=== PATIENT | male | born 1985 | race Caucasian/White ===

== ENCOUNTER 2017-01-21 16:43 | Emergency (ER) | payer OTHER ==
[2017-01-21] MEDS ORDERED: LORAZEPAM INJ 2 MG/1 ML VIAL IM ONE (17:23)
[2017-01-21] MEDS ORDERED: HALOPERIDOL LACTATE INJ 5 MG/1 ML VIAL IM ONE (17:26)
[2017-01-21 18:14] LABS: ABSOLUTE EOSINOPHILS # (AUTO) 0.3 10^3/uL (0.0-0.6); ABSOLUTE LYMPHOCYTES (AUTO) 1.8 10^3/uL (0.5-4.7); ABSOLUTE MONOCYTES (AUTO) 0.5 10^3/uL (0.1-1.4); ABSOLUTE NEUT (AUTO) 4.3 10^3/uL (1.7-8.2); BASOPHILS % (AUTO) 0.6 % (0-2); EOSINOPHILS % (AUTO) 4.3 % (0-6); HEMATOCRIT 39.3 % (37.9-51.0); HEMOGLOBIN 13.6 g/dL (13.5-17.0); HGB HCT DIFFERENCE 1.5; LYMPHOCYTES % (AUTO) 26.1 % (13-45); MEAN CORPUSCULAR HEMOGLOBIN 32.8 pg (27.0-33.4); MEAN CORPUSCULAR HGB CONC 34.7 g/dL (32.0-36.0); MEAN CORPUSCULAR VOLUME 95 fl (80-97); MONOCYTES % (AUTO) 7.4 % (3-13); RED BLOOD COUNT 4.16 10^6/uL (4.35-5.55); SEGMENTED NEUTROPHILS % (AUTO) 61.6 % (42-78)
[2017-01-21 18:17] LABS: PROTHROMBIN TIME 14.4 SEC (11.4-15.4)
[2017-01-21 18:18] LABS: PARTIAL THROMBOPLASTIN TIME 32.9 SEC (23.5-35.8)
[2017-01-21 18:36] LABS: ALANINE AMINOTRANSFERASE 64 U/L (21-72); ALBUMIN 4.4 g/dL (3.5-5.0); ALKALINE PHOSPHATASE 109 U/L (38-126); ANION GAP 13 (5-19); ASPARTATE AMINO TRANSFERASE 43 U/L (17-59); BILIRUBIN,DIRECT 0.5 mg/dL (0.0-0.4); BILIRUBIN,TOTAL 1.1 mg/dL (0.2-1.3); BLOOD UREA NITROGEN 7 mg/dL (7-20); CALCIUM 9.5 mg/dL (8.4-10.2); CARBON DIOXIDE 23 mmol/L (22-30); CHLORIDE 108 mmol/L (98-107); CREATINE KINASE 461 U/L (55-170); GLUCOSE 84 mg/dL (75-110); POTASSIUM 3.5 mmol/L (3.6-5.0); SODIUM 143.7 mmol/L (137-145)
[2017-01-21 18:37] LABS: ALCOHOL < 10 mg/dL (NONE DETECTED)
[2017-01-21 18:47] LABS: CREATINE KINASE MB 0.77 ng/mL (<4.55)
[2017-01-21 18:50] LABS: TROPONIN I < 0.012 ng/mL
[2017-01-21] MEDS ORDERED: RINGERS SOLUTION,LACTATED 1,000 ML IV ONE (20:20)
--- NOTE | 2017-01-21 20:27 | ER Document Report ---
ED General - General Mode of Arrival: Ambulatory Information source: Patient, Relative - Maria Antonia and patient's best friend both presented here, Friend TRAVEL OUTSIDE OF THE [place] IN LAST 30 DAYS: No - HPI Patient complains to provider of: Right leg pain Onset: Other - a few Days ago <MAYELA GAMING - Last Filed: 01/22/17 00:06> <ERIC SOLIMAN - Last Filed: 01/22/17 15:25> - General Chief Complaint: Leg Pain Stated Complaint: LEG PAIN Time Seen by Provider: 01/21/17 17:23 - HPI Notes: This patient is a 31-year-old male. The majority of the history was obtained by question with his fiance as well as his best friend. Patient is a who got out of the approximately 4 years ago. He does have a history of PTSD however he is not treated and does not see a psychologist or psychiatrist for this. Patient does not have any medical problems besides chronic pain secondary to his days. Patient was on clindamycin and Motrin for right lower leg extremity that began a few days ago. Patient had filled his prescriptions January 19. As per his friend and fianc they state he has not slept in at least 8 days. They state that he does drink a few beers daily and he did have some this morning. This morning he started to have visual hallucinations where he saw wires that were not the year, as well as spiders in the garage. While he was in the emergency department awaiting a room he commented that the snake was wrapped around his leg. He did indeed have a belt that he had wrapped around his leg. At that point the nurse went to talk to him and he became violent. He was physically restrained by security and placed in the bed. At that point I did talk to him and he stated that he misses his friends. (MAYELA GAMING) - Related Data Allergies/Adverse Reactions: No Known Drug Allergies Allergy (Verified 01/21/17 16:47) Past Medical History - Social History Smoking Status: Current Every Day Smoker Chew tobacco use (# tins/day): No Frequency of alcohol use: Heavy Family History: Reviewed & Not Pertinent Patient has suicidal ideation: No Patient has homicidal ideation: No Renal/ Medical History: Denies: Hx Peritoneal Dialysis - Immunizations Immunizations up to date: Yes Hx Diphtheria, Pertussis, Tetanus Vaccination: Yes <MELODY GAMINGE E - Last Filed: 01/22/17 00:06> Review of Systems - Review of Systems -: Yes ROS unobtainable due to patient's medical condition <NITIN GAMINGLENE E - Last Filed: 01/22/17 00:06> Physical Exam <NITIN GAMINGCARRIEE E - Last Filed: 01/22/17 00:06> <ERIC SOLIMAN - Last Filed: 01/22/17 15:25> - Vital signs Vitals: Resp BP Pulse Ox 18 124/61 98 01/21/17 17:59 01/21/17 17:59 01/21/17 17:59 - Notes Notes: PHYSICAL EXAMINATION: GENERAL: Well-appearing, well-nourished. HEAD: Atraumatic, normocephalic. EYES: Pupils equal round and reactive to light, extraocular movements intact, sclera anicteric, conjunctiva are normal. ENT: Nares patent, oropharynx clear without exudates. Mucous membranes dry. NECK: Normal range of motion, supple without lymphadenopathy LUNGS: Breath sounds clear to auscultation bilaterally and equal. No wheezes rales or rhonchi. HEART: Regular rate and rhythm without murmurs ABDOMEN: Soft, nontender, nondistended abdomen. No guarding, no rebound. No masses appreciated. Musculoskeletal: Normal range of motion, no pitting or edema. No cyanosis. Bilateral healing abrasions to his knees. Patient has a pen outline on his right lower extremity below the knee going around his ankle area. There is faint erythema to this area. Bilateral lower extremities are warm there is no pedal edema they are neurovascularly intact both calves are nontender, not swollen and not erythematous. NEUROLOGICAL: Cranial nerves grossly intact. Normal speech. Normal sensory, motor exams PSYCH: Agitated and aggressive. SKIN: Warm, Dry, normal turgor, no rashes or lesions noted. (NITIN GAMINGLENE E) Course - Laboratory Result Diagrams: 01/21/17 18:00 01/21/17 18:00 - EKG Interpretation by [facility] EKG shows normal: Sinus rhythm Rate: Normal Voltage: Consistant with LVH <MAAMEHENRIETTAClaytonKERRILENE E - Last Filed: 01/22/17 00:06> - Laboratory Result Diagrams: 01/21/17 18:00 01/21/17 18:00 <ERIC SOLIMAN - Last Filed: 01/22/17 15:25> - Re-evaluation Re-evalutation: 01/21/17 22:41 Patient has been reassessed by me throughout his stay in the emergency department. He has remained sleepy. Vital signs have remained stable. I have talked to his fiance as well as his best friend. I did reexamine the patient' s right lower extremity. It is not tender to palpate while the patient is sleeping. The erythema seems to have remained stable. Like I said earlier there is a pen outline on his leg that starts at his ankle and goes up below his right knee there is only erythema to a small surface area in that outline area making me believe that the cellulitis has improved. I will order Doppler ultrasound to rule out DVT in that leg because he initially had presented for pain in that leg area. Patient does have +2 DP pulses in the foot is warm. ( MAYELA GAMING) 01/22/17 15:25 Patient feeling better this morning reevaluation patient no longer meets any IVC criteria. Anup is at bedside takes custody of the patient agrees her plan patient follow-up local clinic patient cellulitis looks to be improving from aaron and leg will continue with clindamycin patient will be discharged home. (ERIC SOLIMAN) - Vital Signs Vital signs: Temp Pulse Resp BP Pulse Ox 97.4 F 17 122/74 99 01/22/17 10:01 01/22/17 13:01 01/22/17 13:00 01/22/17 13:01 - Laboratory Laboratory results interpreted by me: 01/21/17 01/21/17 01/21/17 18:00 18:00 19:15 RBC 4.16 L Potassium 3.5 L Chloride 108 H Direct Bilirubin 0.5 H Creatine Kinase 461 H Urine Ketones TRACE H Salicylates < 1.0 L Acetaminophen < 10 L Discharge <MAYELA GAMING E - Last Filed: 01/22/17 00:06> <ERIC SOLIMAN - Last Filed: 01/22/17 15:25> - Discharge Clinical Impression: Cellulitis of right anterior lower leg, PTSD (post-traumatic stress disorder) Condition: Stable Disposition: HOME, SELF-CARE Instructions: Cellulitis ([facility]) Additional Instructions: Insomnia (likely poor sleep due to PTSD) Everybody has trouble sleeping now and then. When it becomes a frequent problem, you must look for an underlying cause. Depression can interfere with sleep. Anxiety keeps people from falling asleep, while true depression causes fitful sleep and early awakening. If you think anxiety or depression might be your problem, your doctor can help. Many medicines can interfere with sleep. Try cutting back or eliminating caffeine. Watch out for "energizing" vitamins and herbs! Alcohol interferes powerfully with normal sleep. "Rebound insomnia" results when you stop taking sedating medicines like antihistamines, antianxiety medicine, or sleeping pills. Any medical problem that causes pain or bladder discomfort can interfere with sleep. Discuss any problem you have with your doctor. Get regular exercise. Have regular sleep times. Don't "sleep in." Avoid late afternoon naps. Sleeping pills may be temporarily helpful, but are never a long-term solution. Hallucinations You seem to be having hallucinations. Hallucinations are seeing, hearing, or feeling things that don't exist. These symptoms commonly occur with drug abuse and schizophrenia. Drugs like PCP, LSD, MDMA, peyote, and "psychedelic mushrooms" can cause frightening hallucinations. Users of methamphetamine or crack cocaine often see and feel bugs crawling on their skin. Patients with schizophrenia may hear voices that no one else can hear. The delusions of schizophrenia often involve conspiracies or relationships that are not real. When symptoms are due to drug abuse, the mental state usually improves as the drug wears off. Someone you trust should be with you until you are better, to protect you and calm your fears. Tranquilizer medicine is helpful at controlling hallucinations, anxiety, and deluded thoughts. Get a proper diet and enough sleep. Most patients do very well when they get proper medical treatment and social support. You should return at once if your symptoms get worse, if you are having suicidal thoughts or thoughts about hurting others, or if you feel that you are in danger. Follow-up: You have a therapy appointment scheduled with [facility] tomorrow (01/22/2017) at 1000. You have been provided the outpatient resource sheet which documented appointment date and time, as well as high lighted mobile crisis numbers. If symptoms continue or worsen please consult your doctor, utilize mobile crisis numbers or return to the emergency department. Prescriptions: Clindamycin HCl 150 mg PO Q6 #40 capsule Forms: Return to Work
--- NOTE | 2017-01-21 20:36 | EKG REPORT ---
SEVERITY:- ABNORMAL ECG - SINUS RHYTHM with sinus arrhythmia PROBABLE LEFT VENTRICULAR HYPERTROPHY : Confirmed by: Ricardo Razo 21-Jan-2017 20:36:10
[2017-01-21 20:46] LABS: APPEARANCE,URINE CLEAR; BILIRUBIN,URINE NEGATIVE (NEGATIVE); GLUCOSE, URINE NEGATIVE (NEGATIVE); KETONES,URINE TRACE mg/dL (NEGATIVE); LEUKOCYTE ESTERASE,URINE NEGATIVE (NEGATIVE); NITRITE,URINE NEGATIVE (NEGATIVE); PROTEIN,URINE NEGATIVE (NEGATIVE); URINE SPECIFIC GRAVITY 1.006; UROBILINOGEN,URINE NEGATIVE mg/dL (<2.0)
[2017-01-21 20:59] LABS: URINE BARBITURATES SCREEN NEGATIVE; URINE METHADONE SCREEN NEGATIVE; URINE OPIATES LOW NEGATIVE; URINE PHENCYCLIDINE SCREEN NEGATIVE
[2017-01-21] MEDS ORDERED: CLINDAMYCIN 600 MG/D5W RTU 600 MG/50 ML RTUPB IV SCH (22:30)
--- NOTE | 2017-01-22 08:53 | RADIOLOGY REPORT (SQ) ---
EXAM DESCRIPTION: VENOUS UNILATERAL LOWER COMPLETED DATE/TIME: 01/22/2017 8:46 am REASON FOR STUDY: swelling right leg COMPARISON: None. TECHNIQUE: Dynamic and static mcarthur scale and color images acquired of the right leg venous system. S elected spectral images acquired with additional compression and augmentation maneuvers. The contrala teral common femoral vein and saphenofemoral junction were also imaged. Images stored on PACS. LIMITATIONS: None. FINDINGS: COMMON FEMORAL: Normal phasicity, compression and augmentation. No visualized echogenic ma terial on mcarthur scale. No defects on color images. FEMORAL: Normal compression and augmentation. No visualized echogenic material on mcarthur scale. No defe cts on color images. POPLITEAL: Normal compression, augmentation. No visualized echogenic material on mcarthur scale. No defec ts on color images. CALF VESSELS: Normal compression, augmentation. No visualized echogenic material on mcarthur scale. No de fects on color images. GSV and SSV: Normal compression, augmentation. No visualized echogenic material on mcarthur scale. No def ects on color images. ANY DEEP VENOUS INSUFFICIENCY: Not evaluated. ANY EVIDENCE OF POPLITEAL CYST: No. OTHER: No other significant finding. CONTRALATERAL COMMON FEMORAL VEIN AND SAPHENOFEMORAL JUNCTION: Normal phasicity, compression and augmentation. No visualized echogenic material on mcarthur scale. No de fects on color images. IMPRESSION: NO EVIDENCE DVT OR SVT IN THE RIGHT LEG. TECHNICAL DOCUMENTATION: JOB ID: [id number] [employer]- All Rights Reserved
[2017-01-22] MEDS: CLINDAMYCIN HCL 150 MG CAPSULE PO SCH ×2 (09:33→14:19)
--- NOTE | 2017-01-22 10:00 | ER Document Report ---
Doctor's Note Notes: 01/22/17 10:00 Patient has been seen and evaluated resting comfortably no acute distress. Laboratory values previous provider note and vital signs have been evaluated. Patient otherwise looks to be stable for disposition/transfer. Patient otherwise states feeling much better today. Leg looks to be improved. Patient is tolerating p.o. Currently waiting for our psychiatric recommendations
[2017-01-22 15:32] VITALS: BP 134/86
--- NOTE | 2017-01-22 22:38 | PSYCHOLOGICAL NOTE ---
Psych Note - Psych Note Psych Note: Patient is a 31 year old male who presented to the ED last evening for unusual behavior, visual hallucinations (saying a snake was wrapped around his leg and he had a belt fastened around it), and he then became aggressive required physical restraints. Patient stated the last thing he remembered about last night was being in the hospital bed, talking to his girlfriend and best friend, and falling asleep. He stated he slept well. He admitted he had not been sleeping well at home due to dreaming about friends that in war. He noted a diagnosis of PTSD and recently someone blamed him for the of his friends. He identified he used to have behavioral health treatment but his therapist moved away. When confronted about the visual hallucinations ( wires and spiders the girlfriend had informed medical staff about) he did not recall wires but stated he is an expert on spiders and went into describing webs. He reported he had 3-4 beers yesterday but typically only drink on the weekend. He noted he is 100% disabled via and has [facility]. His UDS was negative for all substances though there was difficulty reading the amphetamine screening due to interfering substances. Patient was alert and oriented to person, place, and his recollection of situation. Mood and affect were difficult to ascertain given lethargy. He denied SI/HI. He did not appear to be responding to internal stimuli AEB fair eye contact and ability to carry on dialogue conversation. Thought processes were linear. Conversational speech was WNL for rate, tone and prosody. Intellectual abilities are estimated to be average. Insight, judgment and impulse control were fair AEB no observed psychosis. Patient gave verbal consent to contact his girlfriend, Delma ([phone]). She reported she has known patient for 5 years and he has never acted the way he did last night. She noted that in a 30 minute time frame he went from being okay to being psychotic. She stated they do not typically drink but they are out of work and had some friends over. She further noted that a substance was found in a room at their house, nobody owned up to it, it was blue and she called it "Go-Fast," and it is missing/no longer where it was. She stated he has not used drugs previously. She confirmed he has not been sleeping for 8 days. She stated they have been hanging out in the garage where there are spiders, spider webs, and eggs. She reported stuff started falling from the ceiling and patient started talking about different fibers spider webs are made out of. She noted she does not know where this came from as she does not know him to be a spider expert. 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 He does not meet [place] IVC criteria. He denied SI/HI and the psychosis has dissipated. Per patient and girlfriend this behavior has never happened before. There has been a lack of sleep, a trigger to his PTSD, patient and girlfriend admit they were drinking more since friends have been around, and an unknown substance was discovered when everyone was in the home which cannot be found now. Patient scheduled for outpatient therapy follow up at [facility] tomorrow (01/23/2017 ) at 1000. Patient provided with an outpatient resource list which documented appointment date and time. Consulted with Dr. Franco regarding the management and care of patient. ED Physician in agreement with recommendation.
== END 2017-01-22 15:32 | disposition home or self-care (01) ==
LOC: ER 16:43
DX: L03.115 Cellulitis of right lower limb (principal); F43.10 Post-traumatic stress disorder, unspecified; M79.604 Pain in right leg; R44.1 Visual hallucinations; F17.200 Nicotine dependence, unspecified, uncomplicated
CPT/HCPCS: 93005; 99285; 96372; 96365; 96367; 36415; 82553; 80307 ×5; 82550; 85025; 85610; 85730; 80053; 81001; 84484; 93971; 93010; G0480; J1630; J2060; J7120